=== PATIENT | male | born 1990 | race Caucasian/White ===

== ENCOUNTER 2018-03-24 16:22 | Emergency (ER) | payer OTHER ==
[~2018-03-24] VITALS: Ht 185.4 cm; Wt 118.2 kg
[2018-03-24 16:27] VITALS: TEMP 98.3
[2018-03-24] MEDS ORDERED: MINIPRESS 1M1 MG/CAP PO (16:39)
[2018-03-24] MEDS ORDERED: LEXAPRO20 MG PO (16:39)
[2018-03-24] MEDS ORDERED: LODINE 300300 MG/CAP PO (16:40)
[2018-03-24] MEDS ORDERED: ANTIVERT 25MG25 MG PO (17:41)
[2018-03-24 18:16] VITALS: BP 120/82; PULSE 85
== END 2018-03-24 18:17 | disposition home or self-care (01) ==
LOC: COL.ER 16:22
DX: S39.012A Strain of muscle, fascia and tendon of lower back, initial encounter (principal); R42 Dizziness and giddiness; V49.40XA Driver injured in collision with unspecified motor vehicles in traffic accident, initial encounter
CPT/HCPCS: J1885

== ENCOUNTER 2018-05-25 15:21 | Emergency (ER) | payer OTHER ==
[~2018-05-25] VITALS: Ht 185.4 cm; Wt 113.6 kg
[~2018-05-25 15:21] MED LIST: ANTIVERT 25MG25 MG PO; LEXAPRO20 MG PO; LODINE 300300 MG/CAP PO; MINIPRESS 1M1 MG/CAP PO
[2018-05-25 15:45] VITALS: BP 136/80; TEMP 98.6
[2018-05-25 16:35] LABS: BASO # 0.1 (0.0-0.2); BASO % 0.7 % (0.0-2.0); EOS # 0.5 (0.0-0.7); EOS % 7.4 % (0-4.0); GRAN # 2.9 (1.4-6.5); GRAN % 40.9 % (42.2-75.2); HEMATOCRIT 45.2 % (42.0-52.0); HEMOGLOBIN 15.6 g/dl (13.5-18.0); LYMPH # 2.8 (1.2-3.4); LYMPH % 39.4 % (20.0-51.0); MEAN CELL VOLUME 83 fl (80.0-100.0); MEAN CORPUSCULAR HEMOGLOBIN 29 pg (27.0-31.0); MEAN CORPUSCULAR HGB CONC 35 g/dl (33.0-37.0); MEAN PLATELET VOLUME 9.9 fl (7.4-10.4); MONO # 0.7 (0.1-0.6); MONO % 9.6 % (1.7-9.3); PLATELET COUNT 216 K/mm3 (130-400); RED BLOOD COUNT 5.42 M/mm3 (4.20-5.60)
[2018-05-25 16:37] LABS: ALANINE AMINOTRANSFERASE 88 U/L (21-72); ALBUMIN 4.4 gm/dL (3.5-5.0); ALKALINE PHOSPHATASE 101 U/L (50-136); ANION GAP 14 mmol/L (7-16); AST,SGOT 42 U/L (15-37); BILIRUBIN,TOTAL 0.3 mg/dL (0.0-1.0); BLOOD UREA NITROGEN 14 mg/dL (9-20); CALCIUM 9.5 mg/dL (8.4-10.2); CARBON DIOXIDE 23 mmol/L (22-30); CHLORIDE 102 mmol/L (98-107); GLUCOSE 90 mg/dL (74-106); SODIUM 139 mmol/L (137-145); TOTAL PROTEIN 7.4 gm/dL (6.4-8.2)
[2018-05-25 16:38] LABS: ACETAMINOPHEN < 10 ug/mL (10-30); ALCOHOL(ethanol),MEDICAL < 10 mg/dL; SALICYLATE < 1.0 mg/dL
[2018-05-25 16:45] LABS: COLLECTION METHOD CLEAN CATCH
[2018-05-25 17:04] LABS: TRICYCLIC ANTIDEPRESS URINE NEGATIVE
[2018-05-25 17:12] LABS: MUCOUS Present /lpf; SQUAMOUS EPITHELIAL None Seen /hpf; URINE APPEARANCE Clear; URINE BACTERIA None Seen /hpf; URINE COLOR Yellow; URINE RBC 0-2 /hpf
[2018-05-25 17:13] LABS: PH 5 (5-8); URINE BILIRUBIN Negative (NEGATIVE); URINE BLOOD Negative (NEGATIVE); URINE GLUCOSE Negative (NEGATIVE); URINE KETONE Negative (NEGATIVE); URINE LEUKOCYTE ESTERASE Negative (NEGATIVE); URINE NITRATE Negative (NEGATIVE); URINE PROTEIN(semi-quant) Negative (NEGATIVE); URINE UROBILINOGEN Negative (NEGATIVE)
[2018-05-25 19:08] VITALS: PULSE 80
== END 2018-05-25 19:10 | disposition home or self-care (01) ==
LOC: COL.ER 15:21
PROVIDERS: Family Medicine
DX: R45.851 Suicidal ideations (principal); F32.9 Major depressive disorder, single episode, unspecified

== ENCOUNTER → 2019-03-14 | Outpatient (CLI) | payer OTHER | LOC: COL.RAD 03-11 07:30 | DX: S73.191A Other sprain of right hip, initial encounter (principal); M25.851 Other specified joint disorders, right hip | CPT/HCPCS: A9585; Q9967 ==

== ENCOUNTER → 2019-03-15 | Outpatient (CLI) | payer OTHER | LOC: COL.RAD 09:00 | DX: M89.311 Hypertrophy of bone, right shoulder (principal) ==

== ENCOUNTER 2020-05-21 12:53 | Emergency (ER) | payer OTHER ==
[~2020-05-21] VITALS: Ht 185.4 cm; Wt 122.7 kg
[~2020-05-21 12:53] MED LIST changes: +PROPRANOLOL; +TRAZODONE
[2020-05-21 12:58] VITALS: BP 99/90; TEMP 98.6
[2020-05-21] MEDS ORDERED: INDERAL 20MG20 MG (15:01)
[2020-05-21] MEDS ORDERED: DESYREL 50MG50 MG (15:02)
[2020-05-21] MEDS ORDERED: VIAGRA 25MG TAB25 MG PO (15:02)
[2020-05-21] MEDS ORDERED: PERCOCET 325 MG1 TA2 PO (15:19)
[2020-05-21 17:09] LABS: HEMATOCRIT 41.9 % (42.0-52.0); HEMOGLOBIN 14.1 g/dl (13.5-18.0); MEAN CELL VOLUME 88 fl (80.0-100.0); MEAN CORPUSCULAR HEMOGLOBIN 30 pg (27.0-31.0); MEAN CORPUSCULAR HGB CONC 34 g/dl (33.0-37.0); MEAN PLATELET VOLUME 10.2 fl (7.4-10.4); PLATELET COUNT 220 K/mm3 (130-400); RED BLOOD COUNT 4.78 M/mm3 (4.20-5.60); REDCELL DISTRIBUTION WIDTH-CV 12.4 % (11.5-14.5)
[2020-05-21 17:19] LABS: BILIRUBIN,TOTAL 0.7 mg/dL (0.0-1.0); CALCIUM 9.2 mg/dL (8.4-10.2); CREATININE, serum 0.88 (0.66-1.25); POTASSIUM 4.1 mmol/L (3.4-5.0); TOTAL PROTEIN 6.8 gm/dL (6.4-8.2)
[2020-05-21 18:10] LABS: BAND 1 % (0-10); EOSINOPHIL 1 % (0-4); LYMPHOCYTE 25 % (20.0-51.0); NEUTROPHILS 70 % (42.0-75.2)
[2020-05-21 18:11] LABS: PLATELET ESTIMATE NORMAL (NORMAL)
[2020-05-21 18:12] LABS: TEAR DROP CELLS 1+
[2020-05-21 18:13] VITALS: PULSE 80
== END 2020-05-21 18:12 | disposition home or self-care (01) ==
LOC: COL.ER 12:53
PROVIDERS: Emergency Medicine
DX: S42.411A Displaced simple supracondylar fracture without intercondylar fracture of right humerus, initial encounter for closed fracture (principal); S80.212A Abrasion, left knee, initial encounter; F43.10 Post-traumatic stress disorder, unspecified; R40.2412 Glasgow coma scale score 13-15, at arrival to emergency department; V29.9XXA Motorcycle rider (driver) (passenger) injured in unspecified traffic accident, initial encounter; Y92.410 Unspecified street and highway as the place of occurrence of the external cause
CPT/HCPCS: J1170; J2060; J2405; J7030; Q4021

== ENCOUNTER 2021-05-12 22:28 | Emergency (ER) | payer OTHER ==
[~2021-05-12] VITALS: Ht 185.4 cm; Wt 135.5 kg
[~2021-05-12 22:28] MED LIST changes: +DESYREL 50MG50 MG; +INDERAL 20MG20 MG; +PERCOCET 325 MG1 TA2 PO; +VIAGRA 25MG TAB25 MG PO
[2021-05-12 22:44] VITALS: TEMP 97.2
[2021-05-12 23:51] VITALS: BP 139/91; PULSE 92
== END 2021-05-12 23:51 | disposition home or self-care (01) ==
LOC: COL.ER 22:28
DX: T18.128A Food in esophagus causing other injury, initial encounter (principal)
CPT/HCPCS: J1610; J2405; J7030

== ENCOUNTER → 2022-03-13 | Outpatient (CLI) | payer OTHER | LOC: COL.RAD 13:32 | DX: K76.0 Fatty (change of) liver, not elsewhere classified (principal); R16.1 Splenomegaly, not elsewhere classified; Z90.89 Acquired absence of other organs | CPT/HCPCS: Q9967 ==

== ENCOUNTER → 2022-04-22 | Outpatient (CLI) | payer OTHER | LOC: COL.RAD 07:44 | DX: K20.0 Eosinophilic esophagitis (principal); T18.128D Food in esophagus causing other injury, subsequent encounter; K62.5 Hemorrhage of anus and rectum; K64.8 Other hemorrhoids; K59.09 Other constipation; R19.7 Diarrhea, unspecified | CPT/HCPCS: A9541 ==

== ENCOUNTER 2023-10-21 18:44 | Emergency (ER) | payer OTHER ==
[~2023-10-21] VITALS: Ht 185.4 cm; Wt 125.0 kg
[2023-10-21 18:48] VITALS: TEMP 98.4
[2023-10-21] MEDS ORDERED: NS 1,000 ML IV ONE (19:15)
[2023-10-21] MEDS ORDERED: Ondansetron 4 MG/2 ML VIAL IV ONE (19:15)
[2023-10-21] MEDS ORDERED: Pantoprazole 40 MG in NS 10 ML IV ONE (19:15)
[2023-10-21] MEDS ORDERED: LORazepam 2 MG/ML 1 ML VIAL IV ONE (19:15)
[2023-10-21 21:12] VITALS: BP 113/82; PULSE 68
== END 2023-10-21 21:25 | disposition home or self-care (01) ==
LOC: COL.ER 18:44
DX: T18.128A Food in esophagus causing other injury, initial encounter (principal)
CPT/HCPCS: C9113; J2060; J2405; J7030